=== PATIENT | female | born 2005 | race Caucasian/White ===

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

== ENCOUNTER 2024-04-08 22:08 | Emergency (ER) | payer OTHER ==
[2024-04-09 00:10] LABS: Specific Gravity 1.042 (1.005-1.030); Specific Gravity > 1.030 (1.005-1.030); Urine Bacteria None Seen /HPF (<20); Urine Bilirubin NEGATIVE (Negative); Urine Blood Negative (Negative); Urine Clarity Turbid (Clear); Urine Color Yellow (Yellow); Urine Culture Reflex Order NOT NEEDED; Urine Glucose NEGATIVE (Negative); Urine Ketones TRACE (Negative); Urine Micro Reflex YN NO BILL MICROSCOPIC; Urine Mucus 3+ /HPF (None Seen); Urine Nitrite NEGATIVE (Negative); Urine Protein 1+ (Negative); Urine RBC <5 /HPF (None Seen); Urine Urobilinogen 1+ (Normal); Urine WBC <5 /HPF (<5); Urine pH 6.5 (5.0-7.0)
[2024-04-09] MEDS ORDERED: KETOROLAC 30 MG/ML INJ ONE (00:39)
[2024-04-09] MEDS ORDERED: DIPHENHYDRAMINE 50 MG/ML VIAL ONE (00:39)
[2024-04-09] MEDS ORDERED: NA CHLORIDE 0.9% 1,000 ML ONE (00:39)
[2024-04-09] MEDS ORDERED: NA CHLORIDE 0.9% 50 ML ONE (00:39)
[2024-04-09] MEDS ORDERED: METOCLOPRAMIDE 10 MG/2mL INJ ONE (00:39)
[2024-04-09 01:03] LABS: Absolute Eosinophils 0.1 K/uL (0-0.5); Absolute Monocytes 0.4 K/uL (0.1-1.3); Absolute Neutrophil 1.5 K/uL (1.8-8.0); Basophils % 0.6 % (0-1.3); Eosinophils % 2.2 % (0-4.4); Hematocrit 39.1 % (36.0-45.0); Hemoglobin 13.1 g/dL (12.0-15.0); MCH 27.9 pg (27.0-35.0); MCHC 33.5 g/dL (32.0-36.0); MCV 83.3 fL (80-100); MPV 7.8 fL (7.6-11.3); Monocytes % 7.9 % (3.3-12.3); Neutrophils % 29.3 % (41.7-73.7); Nucleated Red Blood Cells % 0.5 % (0-0); Platelets 240 thou/uL (152-406); RBC Red Blood Cell Count 4.69 M/uL (3.86-4.86); Red Cell Distribution Width 14.4 % (12.1-15.2)
[2024-04-09 01:27] LABS: Albumin 3.4 g/dL (3.4-5.0); Albumin/Globulin Ratio 0.9 (1.1-1.8); Anion Gap 7.6 mEq/L (5.0-15.0); Bilirubin Total 0.6 mg/dL (0.2-1.0); Potassium 3.6 mEq/L (3.5-5.1); Protein, Total 7.4 g/dL (6.4-8.2); Thyroid Stimulating Hormone 1.42 uIU/mL (0.358-3.740)
--- NOTE | 2024-04-09 02:13 | EDPHYS ---
Physician Documentation [facility] Name: Horace Ghosh Age: 18 yrs Sex: Female : 2005 Arrival Date: 04/08/2024 Time: 22:08 Bed 12 Private MD: ED Physician Pérez Mccullough HPI: 04/08 22:45 This 18 yrs old Female presents to ER via Ambulatory with complaints of sp4 Headache, Blurred Vision. 04/09 07:52 18-year-old female presents with new onset headache associated with blurred vision. sp4 [employer]: 04/08 22:40 LMP 03/17/2024, unknown vc1 Historical: - Allergies: 22:39 No Known Allergies; vc1 - PMHx: 22:39 None; vc1 - PSHx: 22:39 None; vc1 - Immunization history:: Client reports receiving the 2nd dose of the Covid vaccine. - Infectious Disease History:: Denies. - Social history:: Smoking status: Patient denies any tobacco usage or history of. - Family history:: not pertinent. ROS: 04/09 07:52 Constitutional: Negative for fever, chills, and weight loss, headache positive blurred sp4 vision All other systems are negative, Exam: 07:52 Constitutional: This is a well developed, well nourished patient who is awake, alert, sp4 and in no acute distress. Head/Face: Normocephalic, atraumatic. Eyes: Pupils equal round and reactive to light, extra-ocular motions intact. Lids and lashes normal. Conjunctiva and sclera are not injected. Cornea within normal limits. Periorbital areas with no swelling, redness, or edema. ENT: Nares patent. No nasal discharge, no septal abnormalities noted. Tympanic membranes are normal and external auditory canals are clear. Oropharynx with no redness, swelling, or masses, exudates, or evidence of obstruction, uvula midline. Mucous membranes moist. Neck: Trachea midline, no thyromegaly or masses palpated, and no cervical lymphadenopathy. Supple, full range of motion without nuchal rigidity, or vertebral point tenderness. Chest/axilla: Normal chest wall appearance and motion. Nontender with no deformity. No lesions are appreciated. Cardiovascular: Regular rate and rhythm with a normal S1 and S2. No gallops, murmurs, or rubs. Normal PMI, no JVD. No pulse deficits. Respiratory: Lungs have equal breath sounds bilaterally, clear to auscultation and percussion. No rales, rhonchi or wheezes noted. No increased work of breathing, no retractions or nasal flaring. Abdomen/GI: Soft, with normal bowel sounds. No distension or tympany. No guarding or rebound. No evidence of tenderness throughout. Back: No spinal tenderness. No costovertebral tenderness. Skin: Warm, dry with normal turgor. Normal color with no rashes, no lesions, and no evidence of cellulitis. MS/ Extremity: Pulses equal, no cyanosis. Neurovascular intact. Full, normal range of motion. Neuro: Awake and alert, GCS 15, oriented to person, place, time, and situation. Cranial nerves II-XII grossly intact. Motor strength 5/5 in all extremities. Sensory grossly intact. Psych: Awake, alert, with orientation to person, place and time. Behavior, mood, and affect are within normal limits Vital Signs: 04/08 22:38 BP 125 / 79; Pulse 92; Resp 18; Temp 97; Pulse Ox 100% ; Weight 117.93 kg; Height 5 ft. vc1 0 in. ; Pain 8/10; 04/09 00:43 BP 115 / 57; Pulse 86; Resp 18; Pulse Ox 100% ; vc1 02:52 BP 108 / 65; Pulse 83; Resp 16; Pulse Ox 100% ; vc1 04/08 22:38 Body Mass Index 50.78 (117.93 kg, 152.4 cm) - Percentile 99.2 % vc1 04/08 22:38 Pain Scale: Adult vc1 [place] Coma Score: 07:52 Eye Response: spontaneous(4). Motor Response: obeys commands(6). Verbal Response: sp4 oriented(5). Total: 15. 07:52 Eye Response: spontaneous(4). Motor Response: obeys commands(6). Verbal Response: sp4 oriented(5). Total: 15. MDM: 04/08 22:46 Patient medically screened. sp4 04/09 02:08 ED course: EXAMINATION: CT HEAD WITHOUT IV CONTRAST INDICATION: Female, 18 years old, sp4 migraine new onset COMPARISON(S): None. TECHNIQUE: CT acquisition of the head without contrast. Coronal and sagittal reformatted images provided. This exam was performed according to departmental dose-optimization program which includes automated exposure control, adjustment of the mA and/or kV according to patient size, and/or use of iterative reconstruction technique. FINDINGS: Brain: No evidence of hemorrhage, mass effect, or cerebral edema. CSF Spaces: Unremarkable. Osseous: No acute findings. Soft tissue: No evidence of scalp or soft tissue injury. Orbits: The globes and orbits are unremarkable. Sinuses/Mastoids: Visualized portions are clear. IMPRESSION: No acute intracranial findings. . 07:52 Differential diagnosis: migraine, tension headache, vasomotor headache. Data reviewed: sp4 vital signs, lab test result(s), radiologic studies, CT scan. ED course: Stable for discharge home.. 04/08 22:46 Order name: Test, Urine; Complete Time: 00:11 sp4 04/08 22:46 Order name: Urinalysis W/Microscopic; Complete Time: 00:11 sp4 04/09 00:15 Order name: CBC with Diff; Complete Time: 02:09 sp4 04/09 00:15 Order name: CMP; Complete Time: 02:09 sp4 04/09 00:16 Order name: TSH; Complete Time: 02: sp4 04/09 00:16 Order name: T4 Free; Complete Time: 02: sp4 04/09 00:16 Order name: CT Head Brain wo Cont sp4 04/09 00:15 Order name: IV Saline Lock; Complete Time: 00:53 sp4 04/09 00:15 Order name: Labs collected and sent; Complete Time: 00:53 sp4 Administered Medications: 00:53 Drug: NS 0.9% IV 1000 ml IV at 1 bolus Per protocol; 1000 mL bolus Route: IV; Rate: 1 vc1 bolus; Site: right antecubital; 01:53 Follow up: IV Status: Completed infusion; IV Intake: 1000ml vc1 00:53 Drug: TORadol - Ketorolac IVP 30 mg IVP once Route: IVP; Site: right antecubital; vc1 01:10 Follow up: Response: No adverse reaction; Marked relief of symptoms; Pain is decreased vc1 00:53 Drug: metoCLOPramide IVP 10 mg IVP once; over 1 to 2 minutes Route: IVP; Site: right vc1 antecubital; 01:10 Follow up: Response: No adverse reaction; Marked relief of symptoms; Pain is decreased vc1 00:53 Drug: diphenhydrAMINE IVP 25 mg IVP once Route: IVP; Site: right antecubital; vc1 01:10 Follow up: Response: No adverse reaction; Marked relief of symptoms; Pain is decreased vc1 Disposition Summary: 04/09/24 02:13 Discharge Ordered Notes: Location: Home sp4 Problem: new sp4 Symptoms: have improved sp4 Condition: Stable sp4 Diagnosis - Migraine without aura, not intractable sp4 - Acute Migraine Headache, Elevated Liver Enzymes sp4 Followup: sp4 - With: Carlos Louis DO - When: 7 - 10 days - Reason: Recheck today's complaints Discharge Instructions: - Discharge Summary Sheet sp4 - Migraine Headache, [id number] sp4 Forms: - Patient Portal Instructions sp4 Prescriptions: - Fioricet 50-300-40 mg Oral capsule - take 1 capsule ORAL route every 8 hours PRN headaches; 30 capsule; Refills: 0, sp4 Product Selection Permitted Signatures: Dispatcher [employer] EDMS Yvette Escobar RN RN vc1 Pérez Mccullough MD MD sp4 Corrections: (The following items were deleted from the chart) 00:16 00:16 CBC+H.LAB.BRZ ordered. EDMS EDMS 00:16 00:16 COMPREHENSIVE METABOLIC PANEL+C.LAB.BRZ ordered. EDMS EDMS
--- NOTE | 2024-04-09 02:13 | ER ---
Nurse's Notes [facility] Name: Horace Ghosh Age: 18 yrs Sex: Female : 2005 Arrival Date: 04/08/2024 Time: 22:08 Bed 12 Private MD: Diagnosis: Migraine without aura, not intractable;Acute Migraine Headache, Elevated Liver Enzymes Presentation: 04/08 22:38 Chief complaint: Patient states: Bad headache that is causing blurry vision and making vc1 me nauseous. Coronavirus screen: Vaccine status: Patient reports receiving the 2nd dose of the covid vaccine. Client denies travel out of the [place] in the last 14 days. headache, nausea, Client presents with at least one sign or symptom that may indicate coronavirus-19. Ebola Screen: Patient negative for fever greater than or equal to 101.5 degrees Fahrenheit, and additional compatible Ebola Virus Disease symptoms Patient denies exposure to infectious person. Patient denies travel to an Ebola-affected area in the 21 days before illness onset. No symptoms or risks identified at this time. Initial Sepsis Screen: Does the patient meet any 2 criteria? No. Patient's initial sepsis screen is negative. Does the patient have a suspected source of infection? No. Patient's initial sepsis screen is negative. Risk Assessment: Do you want to hurt yourself or someone else? Patient reports no desire to harm self or others. Onset of symptoms was April 07, 2024. 22:38 Method Of Arrival: Ambulatory vc1 22:38 Acuity: JESSICA 4 vc1 Triage Assessment: 22:40 Headache History: The patient has had previous headaches and this one is similar to vc1 previous episodes. General: Appears in no apparent distress. uncomfortable, Behavior is calm, cooperative, appropriate for age. Pain: Complains of pain in left parietal area, right parietal area, occipital area, left occipital area and right occipital area Pain does not radiate. Pain currently is 8 out of 10 on a pain scale. Quality of pain is described as pressure, sharp, Pain began 1 day ago. Is continuous, Noted to be grimacing, Also complains of nausea, photophobia. Neuro: Level of Consciousness is awake, alert, obeys commands, Oriented to person, place, time, situation, Appropriate for age Reports blurred vision headache photophobia. Respiratory: Airway is patent Respiratory effort is even, unlabored, Respiratory pattern is regular, symmetrical. Derm: Skin is intact, is healthy with good turgor, Skin is dry, Skin is normal, Skin temperature is warm. HEM MARKER: 22:40 LMP 03/17/2024, unknown vc1 Historical: - Allergies: 22:39 No Known Allergies; vc1 - PMHx: 22:39 None; vc1 - PSHx: 22:39 None; vc1 - Immunization history:: Client reports receiving the 2nd dose of the Covid vaccine. - Infectious Disease History:: Denies. - Social history:: Smoking status: Patient denies any tobacco usage or history of. - Family history:: not pertinent. Screenin:40 Abuse screen: Denies threats or abuse. Nutritional screening: No deficits noted. vc1 Tuberculosis screening: No symptoms or risk factors identified. 22:42 [facility] ED Fall Risk Assessment (Adult) History of falling in the last 3 months, vc1 including since admission No falls in past 3 months (0 pts) Confusion or Disorientation No (0 pts) Intoxicated or Sedated No (0 pts) Impaired Gait No (0 pts) Mobility Assist Device Used No (0 pt) Altered Elimination No (0 pt) Score/Fall Risk Level 0 - 2 = Low Risk Oriented to surroundings, Maintained a safe environment, Educated pt \T\ family on fall prevention, incl call for assistance when getting out of bed. Assessment: 04/09 02:52 Reassessment: Patient appears in no apparent distress at this time. Patient and/or vc1 family updated on plan of care and expected duration. Pain level reassessed. Patient is alert, oriented x 3, equal unlabored respirations, skin warm/dry/pink. Patient denies pain at this time. Patient states feeling better. Patient states symptoms have improved. Vital Signs: 04/08 22:38 BP 125 / 79; Pulse 92; Resp 18; Temp 97; Pulse Ox 100% ; Weight 117.93 kg; Height 5 ft. vc1 0 in. ; Pain 8/10; 04/09 00:43 BP 115 / 57; Pulse 86; Resp 18; Pulse Ox 100% ; vc1 02:52 BP 108 / 65; Pulse 83; Resp 16; Pulse Ox 100% ; vc1 04/08 22:38 Body Mass Index 50.78 (117.93 kg, 152.4 cm) - Percentile 99.2 % vc1 04/08 22:38 Pain Scale: Adult vc1 [place] Coma Score: 07:52 Eye Response: spontaneous(4). Motor Response: obeys commands(6). Verbal Response: sp4 oriented(5). Total: 15. 07:52 Eye Response: spontaneous(4). Motor Response: obeys commands(6). Verbal Response: sp4 oriented(5). Total: 15. ED Course: 04/08 22:10 Patient arrived in ED. jj6 22:39 Triage completed. vc1 22:40 Arm band placed on right wrist. vc1 22:45 Pérez Mccullough MD is Attending Physician. sp4 23:35 Patient has correct armband on for positive identification. Bed in low position. Call vc1 light in reach. 23:50 Urinalysis W/Microscopic Sent. vc1 23:50 Test, Urine Sent. vc1 04/09 00:41 CT Head Brain wo Cont In Process Unspecified. EDMS 00:54 Yvette Escobar, MARKELL is Primary Nurse. vc1 00:54 Inserted saline lock: 20 gauge in right antecubital area, using aseptic technique. vc1 Blood collected. Flushed with 10 mL NS. 02:11 Carlos Louis DO is Referral Physician. sp4 02:52 No provider procedures requiring assistance completed. IV discontinued, intact, vc1 bleeding controlled, No redness/swelling at site. Pressure dressing applied. 02:53 Provided Education on: f/u with PCP to watch liver enzymes. vc1 Administered Medications: 00:53 Drug: NS 0.9% IV 1000 ml IV at 1 bolus Per protocol; 1000 mL bolus Route: IV; Rate: 1 vc1 bolus; Site: right antecubital; 01:53 Follow up: IV Status: Completed infusion; IV Intake: 1000ml vc1 00:53 Drug: TORadol - Ketorolac IVP 30 mg IVP once Route: IVP; Site: right antecubital; vc1 01:10 Follow up: Response: No adverse reaction; Marked relief of symptoms; Pain is decreased vc1 00:53 Drug: metoCLOPramide IVP 10 mg IVP once; over 1 to 2 minutes Route: IVP; Site: right vc1 antecubital; 01:10 Follow up: Response: No adverse reaction; Marked relief of symptoms; Pain is decreased vc1 00:53 Drug: diphenhydrAMINE IVP 25 mg IVP once Route: IVP; Site: right antecubital; vc1 01:10 Follow up: Response: No adverse reaction; Marked relief of symptoms; Pain is decreased vc1 Medication: 04/08 22:42 VIS not applicable for this client. vc1 Intake: 04/09 01:53 IV: 1000ml; Total: 1000ml. vc1 Outcome: 02:13 Discharge ordered by sp4 02:53 Discharged to home ambulatory, vc1 02:53 Condition: improved 02:53 Discharge instructions given to patient, Instructed on discharge instructions, follow up and referral plans. medication usage, Demonstrated understanding of instructions, follow-up care, medications, Prescriptions given X 1, 02:53 Patient left the ED. vc1 Signatures: Dispatcher [employer] EDMS Kathi Velez [email or web address] Yvette Escobar RN RN vc1 Pérez Mccullough MD MD sp4
[2024-04-09 03:17] VITALS: TEMP 97; O2SAT 100
[2024-04-09 03:20] VITALS: BP 108/65
--- NOTE | 2024-04-10 13:30 | RAD REPORT ---
EXAM DESCRIPTION: CT - Head Brain Wo Cont - 04/09/2024 6:41 am CLINICAL HISTORY: Female, 18 years old, migraine new onset COMPARISON: None. TECHNIQUE: CT acquisition of the head without contrast. Coronal and sagittal reformatted images prov ided. This exam was performed according to departmental dose-optimization program which includes auto mated exposure control, adjustment of the mA and/or kV according to patient size, and/or use of itera tive reconstruction technique. FINDINGS: Brain: No evidence of hemorrhage, mass effect, or cerebral edema. CSF Spaces: Unremarkable. Osseous: No acute findings. Soft tissue: No evidence of scalp or soft tissue injury. Orbits: The globes and orbits are unremarkable. Sinuses/Mastoids: Visualized portions are clear. IMPRESSION: No acute intracranial findings. Electronically signed by: Kam Ospina MD 04/09/2024 01:07 AM CDT RP Due to temporary technical issues with the PACS/Fluency reporting system, reports are being signed by the in house radiologist without review as a courtesy to ensure prompt reporting. The interpreting r adiologist is fully responsible for the content of the report.
== END 2024-04-09 02:53 | disposition home or self-care (01) ==
LOC: ER 22:08
DX: G43.009 Migraine without aura, not intractable, without status migrainosus (principal); R74.01 Elevation of levels of liver transaminase levels
CPT/HCPCS: 96361; 85025; 81001; 36415; 81025; 84443; 84439; 80053; 70450; 96375; 96374; 99284; J2765; J1200; J7030